=== PATIENT | female | born 1995 | race American Indian/Alaskan Native ===

== ENCOUNTER 2018-07-18 09:51 | Emergency (ER) | payer MEDICAID ==
[2018-07-18 10:19] VITALS: BP 122/62
[2018-07-18] MEDS ORDERED: FUL-GLO OP ONE (11:47)
[2018-07-18] MEDS ORDERED: IBUPROFEN PO ONE (11:47)
[2018-07-18] MEDS ORDERED: TETRACAINE 0.5% OU ONE (11:47)
--- NOTE | 2018-07-18 12:29 | Emergency Department Report ---
ED General Adult HPI - General Chief complaint: Eye Problems Stated complaint: RT EYE PAIN Time Seen by Provider: 07/18/18 11:46 Source: patient Mode of arrival: Ambulatory Limitations: No Limitations - History of Present Illness Initial comments: Patient is a 22-year-old female comes to the ER after running into a pole yesterday. She states that [place] was at the park and was playing with her children swings and ran into the pole. She has swelling and bruising around the right eye. Vision is intact. Patient denies any other injury. Patient denies any significant medical history and is on no medications at home. -: Sudden, days(s) Location: face Severity scale (0 -10): 5 Consistency: constant Improves with: none Worsens with: none Associated Symptoms: denies other symptoms - Related Data Allergies Allergy/AdvReac Type Severity Reaction Status Date / Time No Known Allergies Allergy Unverified 02/22/16 15:54 ED Review of Systems ROS: Stated complaint: RT EYE PAIN Other details as noted in HPI Comment: All other systems reviewed and negative ED Past Medical Hx - Past Medical History Previous Medical History?: No Additional medical history: POS - Surgical History Past Surgical History?: No - Family History Family history: no significant - Social History Smoking Status: Never Smoker Substance Use Type: None ED Physical Exam - General Limitations: No Limitations General appearance: alert, anxious - Head Head exam: Present: normocephalic - Eye Eye exam: Present: PERRL, EOMI, conjunctival injection, periorbital swelling, periorbital tenderness. Absent: scleral icterus, nystagmus Pupils: Present: normal accommodation - ENT ENT exam: Present: mucous membranes moist - Neck Neck exam: Present: normal inspection, full ROM - Respiratory Respiratory exam: Present: normal lung sounds bilaterally - Cardiovascular Cardiovascular Exam: Present: regular rate - GI/Abdominal GI/Abdominal exam: Present: soft - Rectal Rectal exam: Present: deferred - Extremities Exam Extremities exam: Present: normal inspection, full ROM - Back Exam Back exam: Present: normal inspection, full ROM - Neurological Exam Neurological exam: Present: alert, oriented X3 - Psychiatric Psychiatric exam: Present: normal affect, normal mood - Skin Skin exam: Present: warm, dry, intact, ecchymosis ED Course Vital Signs 07/18/18 10:16 Temperature 97.8 F Pulse Rate 74 Respiratory 18 Rate Blood Pressure 122/62 [Left] O2 Sat by Pulse 100 Oximetry ED Medical Decision Making - Radiology Data Radiology results: report reviewed, image reviewed - Medical Decision Making no loc at time of injury no other injury r periorbital swelling and ecchymosis eoms intact no ottorhea or rhinorhea subconjunctival hemorrhage noted no midface instability no nasal swelling neuro intact; no focal def medicated in ER Ct neg for fracture medicated in ER Vital Signs 07/18/18 10:16 Temperature 97.8 F Pulse Rate 74 Respiratory 18 Rate Blood Pressure 122/62 [Left] O2 Sat by Pulse 100 Oximetry dc home with dc plan of care - Differential Diagnosis ro facial fracture Critical care attestation.: If time is entered above; I have spent that time in minutes in the direct care of this critically ill patient, excluding procedure time. ED Disposition Clinical Impression: Facial contusion, Subconjunctival bleed Disposition: DC-01 TO HOME OR SELFCARE Is pt being admited?: No Does the pt Need Aspirin: No Condition: Stable Instructions: Contusion in Adults (ED) Additional Instructions: med as ordered today diet as tolerated activity as tolerated hydrate well with water ICE SLEEP SITTING OR LEANING UP TO HELP DEC SWELLING FOLLOW UP PCP IF PERSISTS BRUISING MAY GET WORSE BEFORE BETTER Referrals: XIOMY JULIEN [Other] - 3-5 Days Time of Disposition: 14:10
[2018-07-18] MEDS ORDERED: TOBRADEX OD ONE (12:30)
[2018-07-18 13:32] LABS: HCG Qualitative,Urine Negative (Negative)
[2018-07-18 13:34] LABS: Bacteria,Urine 1+ /HPF (Negative); Bilirubin,Urine NEG (Negative); Blood,Urine LG (Negative); Color,Urine Amber (Yellow); Mucus,Urine 3+ /HPF
--- NOTE | 2018-07-18 14:01 | Cat Scan Report ---
CT FACIAL BONES WITHOUT CONTRAST: HISTORY: Pain status post fall. TECHNIQUE: Helical CT images with sagittal and coronal CT reformations. FINDINGS: Mild right periorbital soft tissue swelling is identified. All paranasal sinuses are clear. No sinus wall fracture, fluid level or opacification. The orbital cavities are symmetric and intact. The mandible is intact. The skull base and upper cervical spine demonstrate no evidence for acute injury. IMPRESSION: Unremarkable CT of the facial bones. Right periorbital soft tissue swelling.
== END 2018-07-18 14:34 | disposition home or self-care (01) ==
LOC: ED 09:51
DX: S05.11XA Contusion of eyeball and orbital tissues, right eye, initial encounter (principal); W22.8XXA Striking against or struck by other objects, initial encounter; Y93.02 Activity, running; Y92.830 Public park as the place of occurrence of the external cause; Y99.8 Other external cause status
CPT/HCPCS: 70486; 81001; 81025; 99284